=== PATIENT | female | born 1985 | race Caucasian/White ===

== ENCOUNTER 2019-10-03 01:21 | Emergency (ER) | payer BC ==
[~2019-10-03] VITALS: Ht 167.6 cm; Wt 67.1 kg
[2019-10-03 01:29] VITALS: Ht 167.6 cm; Wt 67.1 kg
[2019-10-03 01:45] VITALS: BP 134/91
[2019-10-03 02:16] LABS: UA SPECIFIC GRAVITY <=1.005 (1.005-1.035); microscopic required? YES; urine erythrocyte 3+ (NEGATIVE)
== END 2019-10-03 01:45 | disposition home or self-care (01) ==
LOC: ED 01:21
PROVIDERS: Emergency Medicine
DX: R30.0 Dysuria (principal); R10.30 Lower abdominal pain, unspecified; R35.0 Frequency of micturition